=== PATIENT | female | born 1990 | race Hispanic/Latino ===

== ENCOUNTER 2018-02-10 12:06 | Emergency (ER) | payer OTHER ==
[2018-02-10] MEDS ORDERED: DEXAMETHASONE SOD PHOSPHATE 10MG/ML 1ML VIAL ONE (12:49)
[2018-02-10] MEDS ORDERED: FAMOTIDINE 20MG TAB 20 MG TAB ONE (12:49)
[2018-02-10] MEDS ORDERED: DiphenhydrAMINE HCL 50 MG/ML VIAL ONE (12:50)
== END 2018-02-10 13:47 | disposition home or self-care (01) ==
LOC: EDH 12:06
DX: T78.49XA Other allergy, initial encounter (principal); M19.90 Unspecified osteoarthritis, unspecified site; Z98.890 Other specified postprocedural states; X58.XXXA Exposure to other specified factors, initial encounter
CPT/HCPCS: 81025; 96372 ×2; 99284; J1100; J1200